=== PATIENT | female | born 1980 | race Caucasian/White ===

== ENCOUNTER 2021-11-07 13:44 | Outpatient (CLI) | payer BC, SELFPAY ==
--- NOTE | ~2021-11-07 | XR_ITS ---
XR lumbar spine 2-3V DATE: 11/07/2021 14:13 INDICATION: Chronic low back pain for 15 years TECHNIQUE: AP, lateral, coned lateral lumbosacral views COMPARISON: None FINDINGS: Normal alignment of the lumbar spine. No fracture or bone destruction or spondylolisthesis. The lumbar pedicles are intact. Lumbar and lumbosacral interspaces are well preserved. The sacroilia c joints are intact. Status post cholecystectomy. IMPRESSION: Negative lumbar spine Reviewed, dictated and finalized at location A. REFINERY PROCESS TECHNICIAN IMPRESSION: Negative lumbar spine
--- NOTE | ~2021-11-07 | XR_ITS ---
XR shoulder RT min 2V DATE: 11/07/2021 14:13 INDICATION: Right shoulder pain, arm numbness. History of injury in 2018. TECHNIQUE: 4 views COMPARISON: None FINDINGS: No fracture or dislocation, periosteal reaction or bone destruction or abnormal soft tissue calcification. There is minimal dextroscoliosis of the thoracic spine. IMPRESSION: Negative right shoulder Reviewed, dictated and finalized at location A. OLL SPECIALIST IMPRESSION: Negative right shoulder
== END 2021-11-07 13:45 | disposition home or self-care (01) ==
PROVIDERS: PCP Family Medicine; Visit Provider Family Medicine
DX: M25.511 Pain in right shoulder (principal); M54.50 Low back pain, unspecified
CPT/HCPCS: 72100; 73030

== ENCOUNTER 2021-11-30 13:07 | Outpatient (CLI) | payer BC, SELFPAY ==
[2021-11-30 13:55] LABS: SARS-CoV-2 Ag Negative (Negative)
== END 2021-11-30 13:08 | disposition home or self-care (01) ==
LOC: CHSLAB 13:10
PROVIDERS: PCP Family Medicine; Visit Provider Family Medicine
DX: R05.9 Cough, unspecified (principal); J02.9 Acute pharyngitis, unspecified; Z20.822 Contact with and (suspected) exposure to COVID-19
CPT/HCPCS: 87426; C9803